=== PATIENT | male | born 1995 | race Caucasian/White ===

== ENCOUNTER 2017-05-25 09:22 | Emergency (ER) | payer BC ==
[2017-05-25] MEDS ORDERED: Ibuprofen 800 MG Tab PO ONE (10:13)
[2017-05-25] MEDS ORDERED: predniSONE 20 MG Tab PO ONE (10:13)
--- NOTE | 2017-05-25 10:53 | EDM.PDOC ---
ED HPI GENERAL MEDICAL PROBLEM - General Chief Complaint: Bite:Animal, Insect Stated Complaint: SWOLLEN HAND Time Seen by Provider: 05/25/17 09:24 Source of Information: Reports: Patient History Limitations: Reports: No Limitations - History of Present Illness INITIAL COMMENTS - FREE TEXT/NARRATIVE: HISTORY AND PHYSICAL: History of present illness: [22-year-old male with no significant past history now presents emergency department after a suspected spider bite of the right hand. Yesterday patient noticed a small papule just proximal to his right fifth digit on the dorsum of his hand. The area became mildly itchy and has become swollen over the last day. It is not red and he said no discharge or drainage. He has no signs of systemic illness and denies nausea vomiting fevers chills sweats or shaking chills. No headache or stiff neck and no chest pain shortness of breath. Patient otherwise feels well states his tetanus is up-to-date within the last several years and he will verify that as an outpatient.] Review of systems: As per history of present illness and below otherwise all systems reviewed and negative. Past medical history: As per history of present illness and as reviewed below otherwise noncontributory. Surgical history: As per history of present illness and as reviewed below otherwise noncontributory. Social history: No reported history of drug or alcohol abuse. Family history: As per history of present illness and as reviewed below otherwise noncontributory. Physical exam: Right hand dorsum with 2 mm papule just proximal to right fifth digit surrounding edema but no erythema or warmth. No fluctuance or crepitus. Normal range of motion and use of fingers and wrist. No clinical evidence of cellulitis or abscess. Major exam benign HEENT: Normocephalic, atraumatic, pupils normal and symmetrical, supple neck, no meningismus, normal color Lungs: Normal and symmetrical chest wall excursion bilateral with no tachypnea or increased work of breathing, grossly normal chest exam Heart: No tachycardia in triage Abdomen: Normal-appearing, nondistended, no visible mass or asymmetry Pelvis: Normal-appearing Genitourinary: Deferred Rectal exam: Deferred Extremities: Atraumatic, normal use and range of motion, no visible evidence of gross neurovascular compromise Neuro: Awake, alert, oriented. Normal and appropriate mental status. Cranial nerves grossly unremarkable. Motor function normal. Nonfocal neurologic exam. Diagnostics: [] Therapeutics: [By mouth prednisone and ibuprofen] Impression: [] Plan: [Signs and symptoms consistent with uncomplicated local reaction from spider bite. Tetanus up-to-date. No signs of cellulitis or systemic infection well- appearing patient. He is aware to use ice elevate and take NSAIDs and prednisone as prescribed. Follow-up with his primary care doctor return immediately for new severe or worsening symptoms specifically for any systemic symptoms in the setting of worsening local findings. Patient agrees with outpatient follow-up and strict return precautions given] Definitive disposition and diagnosis as appropriate pending reevaluation and review of above. - Related Data Allergies Allergy/AdvReac Type Severity Reaction Status Date / Time No Known Allergies Allergy Verified 05/25/17 09:37 Home Meds: Home Meds Prednisone [IMW: predniSONE] 60 mg PO WITHBREAKFAST #5 tab 05/25/17 [Rx] Past Medical History - Past Health History Medical/Surgical History: Denies Medical/Surgical History - Past Surgical History HEENT Surgical History: Reports: Other (See Below) Other HEENT Surgeries/Procedures: oral sx Social & Family History - Family History Family Medical History: Noncontributory Endocrine/Metabolic: Reports: Other (See Below) Other Endocrine/Metabolic Family History: Malignant Hyperthermia - Tobacco Use Smoking Status *Q: Never Smoker - Recreational Drug Use Recreational Drug Use: No ED ROS GENERAL - Review of Systems Review Of Systems: See Below (History of present illness) ED EXAM, ANIMAL BITE - Physical Exam Exam: See Below (History of present illness) Course - Vital Signs Last Recorded V/S: Last Vital Signs Temp 36.6 C 05/25/17 09:37 Pulse 55 L 05/25/17 09:37 Resp 16 05/25/17 09:37 BP 116/67 05/25/17 09:37 Pulse Ox 97 05/25/17 09:37 - Orders/Labs/Meds Meds: Medications Discontinued Medications Generic Name Dose Route Start Last Admin Trade Name Nichelle PRN Reason Stop Dose Admin Ibuprofen 800 mg 05/25/17 10:13 05/25/17 10:18 Motrin PO 05/25/17 10:14 800 mg ONETIME ONE Administration Prednisone 60 mg 05/25/17 10:13 05/25/17 10:18 Prednisone PO 05/25/17 10:14 60 mg ONETIME ONE Administration Departure - Departure Time of Disposition: 10:48 Disposition: Home, Self-Care 01 Condition: Good Clinical Impression: Spider bite, Insect bite of finger with local reaction - Discharge Information Prescriptions: Prednisone [IMW: predniSONE] 60 mg PO WITHBREAKFAST #5 tab Instructions: Spider Bite, [id number] Referrals: PCP,None [Primary Care Provider] - Forms: ED Department Discharge Additional Instructions: It appears that you have a spider bite of your right hand at the base of your fifth digit. Your findings are consistent with a local reaction. This means that the venom of the spider has caused local inflammation swelling and discomfort. Sometimes some redness or warmth results as well. You mentioned that your tetanus shot is up-to-date so verify this with your doctor. Take 800 mg of ibuprofen every 6 hours as needed for discomfort. Use an ice pack whenever possible and elevate the hand above your heart to minimize swelling when this is possible. It is Not uncommon to have some skin changes including bruising in that area. If you have worsening symptoms especially with fever vomiting or worsening signs of generalized illness in the setting of worsening findings at the bite site, return to the emergency department for reevaluation. Follow-up with your DrAllegra in 2 days and return immediately for new severe or worsening symptoms
[2017-05-25 11:05] VITALS: BP 113/75
== END 2017-05-25 11:03 | disposition home or self-care (01) ==
LOC: MW.ED 09:22
DX: T63.301A Toxic effect of unspecified spider venom, accidental (unintentional), initial encounter (principal)
CPT/HCPCS: 99282; A9270; 99283

== ENCOUNTER 2022-06-15 20:03 | Emergency (ER) | payer SELFPAY ==
[2022-06-15 22:02] VITALS: BP 133/86; PULSE 82
[2022-06-15] MEDS ORDERED: Morphine 4 MG/ML VIAL IVPUSH ONE ×2 (22:06→23:50)
[2022-06-15] MEDS ORDERED: Ondansetron 4 MG/2 ML SDV IVPUSH ONE (22:06)
== END 2022-06-16 00:16 | disposition home or self-care (01) ==
LOC: MW.ED 20:03
DX: S92.151A Displaced avulsion fracture (chip fracture) of right talus, initial encounter for closed fracture (principal); Z88.2 Allergy status to sulfonamides; X50.1XXA Overexertion from prolonged static or awkward postures, initial encounter
CPT/HCPCS: 73590; 73610; 96374; 96375; 96376; 99283; J2270; J2405; 99282